=== PATIENT | female | born 1985 | race Caucasian/White ===

== ENCOUNTER 2019-04-26 07:43 | Inpatient (IN) | payer SELFPAY ==
[2019-04-26] MEDS ORDERED: Lidocaine 1% (PF) 30 ML VIAL ONE (08:01)
[2019-04-26] MEDS ORDERED: Oxytocin 10 UNITS/ML VIAL ONE (08:02)
[2019-04-26] MEDS ORDERED: Ibuprofen 800 MG TAB PO PRN (08:20)
[2019-04-26] MEDS ORDERED: hydrALAZINE 20 MG/ML VIAL SLOW IVP PRN ×2 (08:20→11:25)
[2019-04-26] MEDS ORDERED: Ondansetron PF 4 MG/2 ML Vial IVP PRN (08:20)
[2019-04-26] MEDS ORDERED: Lidocaine 1% (PF) 30 ML VIAL SC PRN (08:20)
[2019-04-26] MEDS ORDERED: Promethazine HCl 25 MG/ML VIAL IM PRN (08:20)
[2019-04-26] MEDS ORDERED: Oxytocin 10 UNITS/ML VIAL IM SCH (08:30)
--- NOTE | 2019-04-26 08:40 | HP ---
HISTORY OF PRESENT ILLNESS: In brief, this patient's H and P is being completed after delivery as she arrived to Triage and delivered within 15 minutes of arrival. In brief, this patient is a 33-year-old , 3, para 2, who states that her due date was April 26, 2019, who arrived with contractions. After she was moved to [facility], the patient quickly progressed to vaginal delivery within 15 minutes. PAST MEDICAL HISTORY: Negative. PAST SURGICAL HISTORY: None. ALLERGIES: NONE. OB HISTORY: Significant for 2 previous vaginal deliveries. She was seeing Portia Townsend for her care. She states that she does not know her GBS results as she has not been seen recently. PHYSICAL EXAMINATION: VITAL SIGNS: Blood pressure 121/74, but this was and her pulse was in the 90s, respirations are normal at 16 to 18 and they are nonlabored. Physical exam is now . ASSESSMENT: This is a 3, para 2, at term, who is now after uncomplicated vaginal delivery and is doing well. Job ID: [id number]
--- NOTE | 2019-04-26 08:44 | DN ---
DATE OF PROCEDURE: 04/26/2019 TIME OF DELIVERY: 0808 hours. PREPROCEDURE DIAGNOSIS: Active labor at term just after arrival to triage. POSTPROCEDURE DIAGNOSIS: Successful vaginal delivery. PROCEDURES PERFORMED: Uncomplicated spontaneous vaginal delivery and spontaneous placental delivery. DELIVERY TIMES: Baby delivered at 0808 and placenta delivered at 0810 hours spontaneously in Schultze mechanism. DELIVERY PHYSICIAN: Becki Gonzáles MD, with the residency program. STAFF PHYSICIAN: Cipriano Vergara MD, and I was present for delivery of the child, placenta, and perineal inspection as well. ESTIMATED BLOOD LOSS: About 300 mL at maximum. FINDINGS: 1. Baby was vigorous at delivery, but did need extra stimulation and so the NICU nursing team was called just for evaluation. It is important to note that the baby did not require any resuscitation. The 1 minute was eight and the 5 was still pending as I was called out of the room at that time to do an on-call checkout. 2. Placenta was intact with a 3-vessel cord. 3. There were some first-degree minor lacerations at the posterior perineum, but these did not require repair. COUNTS: Correct. COMPLICATIONS: None. DISPOSITION: To recovery room in good and stable condition. PLAN: 1. The patient required IM Pitocin per protocol as no IV was yet established. 2. Baby was female and again did not require resuscitation. Job ID: [id number]
[2019-04-26 09:14] VITALS: BMI 32.3
[2019-04-26] MEDS ORDERED: FLU VACC QS2019-20(6MOS UP)/PF 60 MCG/0.5 ML SYRINGE IM ONE (09:30)
[2019-04-26] MEDS ORDERED: Phytonadione Neonatal 1 MG/0.5 ML AMP IM SCH ×3 (09:30→10:45)
[2019-04-26] MEDS ORDERED: Hepatitis B Vaccine 10 MCG/0.5 ML SYR IM ONE ×2 (09:30→10:30)
[2019-04-26] MEDS ORDERED: Erythromycin Base 0.5% Oint 1 GM TUBE EA EYE SCH ×3 (09:30→10:45)
[2019-04-26] MEDS ORDERED: Boudreaux's Butt Paste 16% Oin 30 GM TUBE TOP PRN ×3 (09:30→10:38)
[2019-04-26 09:36] LABS: Hemoglobin 10.9 g/dL (12.0-16.0); Mean Corpuscular HGB CONC 32.4 g/dL (32.0-36.0); Mean Corpuscular Hemoglobin 24.2 pg (27.0-31.0); Mean Corpuscular Volume 74.8 fL (78.0-98.0); Mean Platelet Volume 11.3 fL (7.4-10.4); Platelet Count 162 thou/uL (130-400); RBC Distribution Width 14.3 % (11.5-14.5); Red Blood Cell (RBC) Count 4.51 mill/uL (4.20-5.40); White Blood Cell (WBC) Count 7.6 thou/uL (4.8-10.8)
[2019-04-26 09:43] LABS: HBSAg Index 0.17 S/CO (0-0.99); Hep B Surf Ag Non-Reactive S/CO (NonReactive)
[2019-04-26 10:23] LABS: Syphilis Antibody Nonreactive (Nonreactive); Syphilis Antibody Index 0.03 S/CO (<1.00 Non-Reactive)
[2019-04-26] MEDS ORDERED: Adacel (T-DAP) 0.5 ML SYRINGE IM ONE (11:25)
[2019-04-26] MEDS ORDERED: Milk Of Magnesia 30 ML UDCUP PO PRN (11:25)
[2019-04-26] MEDS ORDERED: Bisacodyl 10 MG SUPP PR PRN (11:25)
[2019-04-26] MEDS ORDERED: Lanolin Ointment 7 GM TUBE TOP PRN (11:25)
[2019-04-26 12:27] LABS: HIV (1/2) Antibody/Antigen Non-Reactive (NonReactive); HIV 1/2 INDEX 0.07 S/CO (<1.00)
[2019-04-26] MEDS: Ibuprofen 800 MG TAB PO SCH ×2 (14:08→21:18)
[2019-04-26] MEDS: Docusate Calcium (SURFAK) 240 MG CAP PO SCH (21:17)
[2019-04-27] MEDS: Ibuprofen 800 MG TAB PO SCH ×2 (05:04→13:42)
[2019-04-27 06:01] LABS: Hemoglobin 9.4 g/dL (12.0-16.0); Mean Corpuscular HGB CONC 32.5 g/dL (32.0-36.0); Mean Corpuscular Hemoglobin 24.3 pg (27.0-31.0); Mean Corpuscular Volume 74.8 fL (78.0-98.0); Mean Platelet Volume 10.9 fL (7.4-10.4); Platelet Count 154 thou/uL (130-400); RBC Distribution Width 14.2 % (11.5-14.5); Red Blood Cell (RBC) Count 3.86 mill/uL (4.20-5.40); White Blood Cell (WBC) Count 9.2 thou/uL (4.8-10.8)
--- NOTE | 2019-04-27 06:29 | PDOC.PP ---
Post Progress Note Post Day #: 1 Subjective: Doing well PO intake tolerated: yes Flatus: yes Ambulation: yes Vital Signs (12 hours) Temp Pulse Resp BP Pulse Ox 04/27/19 04:00 98.0 F 62 16 106/56 L 04/26/19 23:00 98.2 F 71 16 107/60 04/26/19 20:10 98.8 F 77 16 118/69 98 Weight Weight 200 lb 7.055 oz - Physical Examination General: NAD Cardiovascular: no m/r/g Abdominal: lochia, no distention, appropriately TTP Extremities: negative homans (B) Neurological: no gross focal deficits Psychiatric: A&Ox3, normal affect Result Diagrams: 04/27/19 05:30 Additional Labs: Post Labs Blood Type B POSITIVE 04/26/19 09:32 Hep Bs Antigen Non-Reactive S/CO (NonReactive) 04/26/19 08:58 (1) Vaginal delivery Code(s): O80 - ENCOUNTER FOR FULL-TERM UNCOMPLICATED DELIVERY Status: Acute - Assessment/Plan PPD 1 doing well. baby had unknown GBS status, so we are awaiting pedi notification regarding discharge today. We plan to DC mom this pm at 1600 and may do Bed and Breakfast stay if baby not ready.
[2019-04-27 07:33] VITALS: BP 107/66; TEMP 97.6
[2019-04-27] MEDS ORDERED: Ferrous Sulfate 325 MG TAB PO SCH (08:00)
[2019-04-27] MEDS ORDERED: Prenatal Vitamin 1 TAB PO SCH (09:00)
[2019-04-27] MEDS: Docusate Calcium (SURFAK) 240 MG CAP PO SCH (10:17)
== END 2019-04-27 17:28 | disposition home or self-care (01) | DRG 807 ==
LOC: L&D/OP 07:43 → L&D 08:20 → 3SW 12:27
PROVIDERS: ADMIT Obstetrics & Gynecology; ATTEND Obstetrics & Gynecology
PROC: 10E0XZZ Delivery of Products of Conception, External Approach (ICD-10-PCS; principal; 2019-04-26)
DX: O70.0 First degree perineal laceration during delivery (principal); Z37.0 Single live birth; Z3A.40 40 weeks gestation of pregnancy
CPT/HCPCS: 36415; 36416; 51701; 85027; 86780; 86850; 86900; 86901; 87340; 87389; 99285; J2001; J2590